=== PATIENT | male | born 1995 | race Hispanic/Latino ===

== ENCOUNTER 2024-01-04 14:27 | Emergency (ER) | payer SELFPAY ==
[2024-01-04] MEDS ORDERED: Bacitracin 1 PK ONE (14:40)
[2024-01-04] MEDS ORDERED: NOREPINEPHRINE 8 MG/250 ML-D5W 250 ML ONE (17:05)
== END 2024-01-04 14:50 | disposition home or self-care (01) ==
LOC: CSHERS 14:27
DX: S61.213A Laceration without foreign body of left middle finger without damage to nail, initial encounter (principal); F17.210 Nicotine dependence, cigarettes, uncomplicated; W27.8XXA Contact with other nonpowered hand tool, initial encounter
CPT/HCPCS: 99283